=== PATIENT | female | born 1980 | race Caucasian/White ===

== ENCOUNTER → 2017-01-27 | Outpatient (CLI) | payer OTHER ==
--- NOTE | 2017-01-27 07:58 | MR ---
EXAMINATION TYPE: MR brain wo con DATE OF EXAM: 01/27/2017 7:42 AM COMPARISON: NONE HISTORY: [place], loss of vision lt. eye Multiplanar and multispin-echo imaging of the brain was performed . Patient motion limits portions o f the study. The ventricles, basal cisterns and sulci overlying the cerebral convexities are within normal limits. There is no evidence for midline shift or mass effect. Acute intracranial hemorrhage or extra-axial collection is not evident. Noted are approximately 4 globular T2 lesions left cerebral hemisphere with lung lesions seen adjacen t to the left temporal horn and the remaining lesions are within the centrum semioval bilaterally wit h the largest lesion measuring 8.2 mm. An additional lesion is seen adjacent to the left occipital ho rn. Within the right cerebral hemisphere there is a dominant globular focus of increased signal withi n the right centrum semiovale bilaterally measuring 1 cm for 5 additional lesions are noted with one being within the temporal lobe and the remaining being within the deep white matter and periventricul ar white matter. 2 lesions are noted of the corpus callosum at its body. No acute edema is identified. Moderately severe pansinusitis. Mastoid air cells are well-aerated. IMPRESSION: 1. Globular T2 lesions as discussed above involving both cerebral hemispheres as well as the corpus c allosum. The findings are suspicious for demyelinating disease such as multiple sclerosis. Clinical c orrelation is advised. 2. Moderately severe pansinusitis.
== END | disposition home or self-care (01) ==
LOC: RADMRIMAIN 07:07
PROVIDERS: ATTEND Internal Medicine
DX: G93.89 Other specified disorders of brain (principal); H54.62 Unqualified visual loss, left eye, normal vision right eye
CPT/HCPCS: 70551

== ENCOUNTER → 2017-04-25 | Outpatient (CLI) | payer OTHER ==
--- NOTE | 2017-04-25 09:47 | XR ---
EXAMINATION TYPE: XR shoulder limited RT DATE OF EXAM ORDERED: 04/25/2017 HISTORY: M25.511 shoulder pain. COMPARISON: None. FINDINGS: No fracture, dislocation or other acute osseous lesion is seen. IMPRESSION: NORMAL RIGHT SHOULDER.
== END | disposition home or self-care (01) ==
LOC: RADXRMAIN 09:26
PROVIDERS: ATTEND Internal Medicine
DX: M25.511 Pain in right shoulder (principal)

== ENCOUNTER → 2017-05-09 | Outpatient (CLI) | payer OTHER ==
--- NOTE | 2017-05-09 08:11 | MR ---
EXAMINATION TYPE: MR shoulder RT wo con DATE OF EXAM: 05/09/2017 COMPARISON: Right shoulder x-ray April 25, 2017 HISTORY: RT shoulder pain per order. Pain with difficulty raising overhead for 6 months, torn rotator cuff per patient. TECHNIQUE: Multiplanar, multisequence imaging of the right shoulder is performed without contrast. FINDINGS: Rotator Cuff: There is some increased signal in distal supraspinatus and infraspinatus tendons. No di screte tear is identified. Rotator cuff muscle bulk is preserved. There is edematous change involving teres minor muscles seen best on paracoronal image 27 but confirmed on sagittal images. This extends to humeral articular attachment. Subscapularis tendon is intact and felt within normal limits. Acromioclavicular Joint: Acromioclavicular joint is maintained. Distal acromion morphology is unremar kable. Underlying fat plane is preserved. Glenohumeral Joint: There is small glenohumeral joint effusion. No significant spurring is seen. Labrum: The labrum appears grossly intact given limitation of non-arthrogram study. Biceps Tendon: The long head of biceps is in normal location within bicipital groove. Bone marrow signal: Heterogeneity of bone marrow signal intensity consistent with red marrow reconver mely is present. Other: No additional significant abnormality is appreciated. IMPRESSION: 1. Mild to moderate tendinosis distal supraspinatus and infraspinatus tendons. 2. Edematous change involving teres minor muscle. No suspicious atrophy to suggest quadrilateral spac e syndrome. Consider inflammation. Etiology uncertain otherwise.
== END | disposition home or self-care (01) ==
LOC: RADMRIMAIN 06:42
PROVIDERS: ATTEND Internal Medicine
DX: M67.813 Other specified disorders of tendon, right shoulder (principal); M62.89 Other specified disorders of muscle

== ENCOUNTER 2018-01-04 18:15 | Emergency (ER) | payer OTHER ==
[2018-01-04 19:11] VITALS: BP 138/79; PULSE 79; RESP 18; TEMP 97.5
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
--- NOTE | 2018-01-04 19:35 | XR ---
EXAMINATION TYPE: XR ankle complete RT DATE OF EXAM: 01/04/2018 COMPARISON: NONE HISTORY: Pain TECHNIQUE: 3 views FINDINGS: There is mild soft tissue swelling over the lateral malleolus. I see no fracture nor disloc ation. Joint spaces are fairly normal. IMPRESSION: Mild soft tissue swelling. No fracture.
--- NOTE | 2018-01-04 19:37 | XR ---
EXAMINATION TYPE: XR foot complete RT DATE OF EXAM: 01/04/2018 COMPARISON: NONE HISTORY: Pain TECHNIQUE: 3 views FINDINGS: I see no fracture nor dislocation. Metatarsals appear intact. Joint spaces are fairly melody l. There are no erosions. IMPRESSION: Negative right foot exam. No fracture.
[2018-01-04] MEDS ORDERED: IBUPROFEN 600 MG STARTER PACK 4 TAB BTL PO STA (20:15)
== END 2018-01-04 20:26 | disposition home or self-care (01) ==
LOC: EC 18:15
DX: S90.31XA Contusion of right foot, initial encounter (principal); Z87.891 Personal history of nicotine dependence; Z88.0 Allergy status to penicillin; Z88.8 Allergy status to other drugs, medicaments and biological substances; W01.0XXA Fall on same level from slipping, tripping and stumbling without subsequent striking against object, initial encounter; Y92.009 Unspecified place in unspecified non-institutional (private) residence as the place of occurrence of the external cause
CPT/HCPCS: 99284

== ENCOUNTER → 2018-04-09 | Outpatient (CLI) | payer OTHER ==
[2018-04-09 19:04] LABS: Rheumatoid Factor <4 IU/mL (0-15)
[2018-04-09 19:31] LABS: DNA Double-Stranded NEGATIVE (NEGATIVE); RNP 0.2 AI
== END | disposition home or self-care (01) ==
LOC: LABWHC1 13:02
PROVIDERS: ATTEND Psychiatry & Neurology Neurology
DX: G35 Multiple sclerosis (principal)
CPT/HCPCS: 36415; 85652; 86038; 86225; 86235; 86431

== ENCOUNTER 2018-04-12 09:57 | Emergency (ER) | payer OTHER ==
[2018-04-12 10:02] VITALS: BP 136/88; RESP 18; TEMP 97.7
[2018-04-12 10:03] VITALS: PULSE 100
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
[2018-04-12] MEDS ORDERED: KETOROLAC 60 MG/2 ML VIAL IM STA (10:41)
== END 2018-04-12 11:36 | disposition home or self-care (01) ==
LOC: EC 09:57
DX: Z76.5 Malingerer [conscious simulation] (principal); Z87.412 Personal history of vulvar dysplasia; R10.2 Pelvic and perineal pain; M19.90 Unspecified osteoarthritis, unspecified site; Z87.891 Personal history of nicotine dependence; Z79.1 Long term (current) use of non-steroidal anti-inflammatories (NSAID); Z88.0 Allergy status to penicillin; Z88.1 Allergy status to other antibiotic agents; Z88.8 Allergy status to other drugs, medicaments and biological substances; Z98.890 Other specified postprocedural states
CPT/HCPCS: 99283; 96372; J1885

== ENCOUNTER → 2018-06-13 | Outpatient (CLI) | payer OTHER ==
[2018-06-13 19:51] LABS: Immunoglobulin E 6.94 IU/mL (0.00-114.00)
== END | disposition home or self-care (01) ==
LOC: LABWHC1 11:48
PROVIDERS: ATTEND Psychiatry & Neurology Neurology
DX: G35 Multiple sclerosis (principal); A15.9 Respiratory tuberculosis unspecified
CPT/HCPCS: 36415; 82784; 82785; 86480

== ENCOUNTER → 2018-07-11 | Outpatient (CLI) | payer OTHER ==
[2018-07-11 13:25] LABS: Basophils % (A) 0 %; Eosinophils # (A) 0.1 k/uL (0-0.7); Eosinophils % (A) 2 %; HCT 42.8 % (34.0-46.0); HGB 14.8 gm/dL (11.4-16.0); Lymphocytes # (A) 1.7 k/uL (1.0-4.8); Lymphocytes % (A) 18 %; MCH 31.6 pg (25.0-35.0); MCHC 34.5 g/dL (31.0-37.0); MCV 91.5 fL (80.0-100.0); Mean Platelet Volume 8.4; Monocytes # (A) 0.6 k/uL (0-1.0); Monocytes % (A) 7 %; Neutrophils # (A) 6.8 k/uL (1.3-7.7); Neutrophils % (A) 72 %; Platelet Count 212 k/uL (150-450); RBC 4.68 m/uL (3.80-5.40); RDW 12.4 % (11.5-15.5); WBC 9.4 k/uL (3.8-10.6)
[2018-07-11 14:00] LABS: ALT 26 U/L (9-52); AST 17 U/L (14-36); Albumin 4.4 g/dL (3.5-5.0); Alkaline Phosphatase 65 U/L (38-126); Anion Gap 8 mmol/L; Blood Urea Nitrogen 8 mg/dL (7-17); Calcium 9.9 mg/dL (8.4-10.2); Carbon Dioxide 28 mmol/L (22-30); Chloride 106 mmol/L (98-107); Glucose 91 mg/dL (74-99); Potassium 5.5 mmol/L (3.5-5.1); Sodium 142 mmol/L (137-145); Total Bilirubin 0.4 mg/dL (0.2-1.3)
== END | disposition home or self-care (01) ==
LOC: LABWHC1 12:44
PROVIDERS: ATTEND Obstetrics & Gynecology
DX: Z01.812 Encounter for preprocedural laboratory examination (principal)
CPT/HCPCS: 36415; 80053; 85025

== ENCOUNTER → 2019-01-10 | Outpatient (CLI) | payer OTHER ==
[2019-01-10 09:22] LABS: Basophils # (A) 0.1 k/uL (0-0.2); Basophils % (A) 0 %; Eosinophils # (A) 0.1 k/uL (0-0.7); Eosinophils % (A) 1 %; HCT 38.8 % (34.0-46.0); HGB 12.9 gm/dL (11.4-16.0); Lymphocytes # (A) 1.2 k/uL (1.0-4.8); Lymphocytes % (A) 10 %; MCH 31.1 pg (25.0-35.0); MCHC 33.1 g/dL (31.0-37.0); MCV 93.9 fL (80.0-100.0); Mean Platelet Volume 7.5; Monocytes # (A) 0.7 k/uL (0-1.0); Monocytes % (A) 5 %; Neutrophils # (A) 10.1 k/uL (1.3-7.7); Neutrophils % (A) 82 %; Platelet Count 178 k/uL (150-450); RBC 4.13 m/uL (3.80-5.40); WBC 12.2 k/uL (3.8-10.6)
[2019-01-10 18:12] LABS: Albumin 4.2 g/dL (3.80-4.90); Albumin/Globulin Ratio 2.33 (1.60-3.17); Anion Gap 11.8 mmol/L (4.00-12.00); Calcium 9.2 mg/dL (8.7-10.3); Carbon Dioxide 23.2 mmol/L (21.6-31.8); Globulin 1.8 g/dL (1.6-3.3); Potassium 4.2 mmol/L (3.5-5.5); Total Bilirubin 0.3 mg/dL (0.2-1.2)
[2019-01-10 18:34] LABS: Immunoglobulin E 10.3 IU/mL (0.00-114.00)
[2019-01-11 12:17] LABS: Natural Killer Cell (CD16/56) 200 cell/ul (60-500); Natural Killer Cell (CD16/56)% 16 % (3-24); T Helper Cell (CD4) 718 cell/ul (443-1471); T Helper Cell (CD4) % 57 % (35-66); T Suppressor Cell (CD8) 317 cell/ul (190-832); T Suppressor Cell (CD8) % 25 % (9-37); T4/T8 Ratio (CD4:CD8) 2.3 (1.0-3.7); Total B Cell (CD19) <5 cell/ul (100-524); Total T Cell (CD3) 1018 cell/ul (704-2138); Total T Cell (CD3)% 82 % (55-86)
== END | disposition home or self-care (01) ==
LOC: LABWHC1 08:41
PROVIDERS: ATTEND Psychiatry & Neurology Neurology
DX: G35 Multiple sclerosis (principal)
CPT/HCPCS: 36415; 80053; 82784; 82785; 85025; 86355; 86357; 86359; 86360

== ENCOUNTER → 2019-12-06 | Outpatient (CLI) | payer OTHER ==
[2019-12-06 11:24] LABS: Basophils % (A) 1 %; Eosinophils # (A) 0.1 k/uL (0-0.7); Eosinophils % (A) 1 %; HCT 40.3 % (34.0-46.0); Lymphocytes # (A) 1.6 k/uL (1.0-4.8); Lymphocytes % (A) 17 %; MCH 30.4 pg (25.0-35.0); MCHC 32.3 g/dL (31.0-37.0); MCV 94.2 fL (80.0-100.0); Mean Platelet Volume 10.1; Monocytes # (A) 0.5 k/uL (0-1.0); Monocytes % (A) 6 %; Neutrophils # (A) 6.7 k/uL (1.3-7.7); Neutrophils % (A) 74 %; Platelet Count 149 k/uL (150-450); RBC 4.28 m/uL (3.80-5.40); RDW 12.2 % (11.5-15.5); WBC 9.1 k/uL (3.8-10.6)
[2019-12-06 17:55] LABS: African American GFR (CKD) 108.4 (60.0-200.0); Albumin 4.5 g/dL (3.80-4.90); Albumin/Globulin Ratio 2.81 (1.60-3.17); Anion Gap 7.4 mmol/L (4.00-12.00); Calcium 9.1 mg/dL (8.7-10.3); Carbon Dioxide 24.6 mmol/L (21.6-31.8); Globulin 1.6 g/dL (1.6-3.3); Non-African American GFR(CKD) 93.5 (60.0-200.0); Potassium 4.8 mmol/L (3.5-5.5); Total Bilirubin 0.4 mg/dL (0.3-1.2); Total Protein 6.1 g/dL (6.2-8.2)
[2019-12-06 18:24] LABS: Immunoglobulin E 7.29 IU/mL (0.00-114.00)
[2019-12-09 11:28] LABS: Natural Killer Cell (CD16/56) 207 cell/ul (60-500); Natural Killer Cell (CD16/56)% 13 % (3-24); T Helper Cell (CD4) 1039 cell/ul (443-1471); T Helper Cell (CD4) % 65 % (35-66); T Suppressor Cell (CD8) 341 cell/ul (190-832); T Suppressor Cell (CD8) % 21 % (9-37); Total B Cell (CD19) <5 cell/ul (100-524); Total T Cell (CD3) 1392 cell/ul (704-2138); Total T Cell (CD3)% 86 % (55-86)
== END | disposition home or self-care (01) ==
LOC: LABWHC1 10:40
PROVIDERS: ATTEND Psychiatry & Neurology Neurology
DX: G35 Multiple sclerosis (principal); H46.9 Unspecified optic neuritis; R20.2 Paresthesia of skin
CPT/HCPCS: 36415; 80053; 82306; 82607; 82784; 82785; 84443; 85025; 86355; 86357; 86359; 86360

== ENCOUNTER → 2020-06-03 | Outpatient (CLI) | payer OTHER ==
[2020-06-03 14:27] LABS: Basophils # (A) 0.1 k/uL (0-0.2); Basophils % (A) 1 %; Eosinophils # (A) 0.2 k/uL (0-0.7); Eosinophils % (A) 2 %; HCT 43.8 % (34.0-46.0); Lymphocytes # (A) 1.6 k/uL (1.0-4.8); Lymphocytes % (A) 16 %; MCH 30.8 pg (25.0-35.0); MCV 96.2 fL (80.0-100.0); Mean Platelet Volume 10.1; Monocytes # (A) 0.7 k/uL (0-1.0); Monocytes % (A) 7 %; Neutrophils # (A) 7.3 k/uL (1.3-7.7); Neutrophils % (A) 74 %; Platelet Count 200 k/uL (150-450); RBC 4.55 m/uL (3.80-5.40); RDW 12.6 % (11.5-15.5); WBC 9.9 k/uL (3.8-10.6)
[2020-06-04 00:52] LABS: African American GFR (CKD) 108.4 (60.0-200.0); Albumin 4.6 g/dL (3.80-4.90); Albumin/Globulin Ratio 2.3 (1.60-3.17); Anion Gap 8.2 mmol/L (4.00-12.00); BUN/Creat Ratio 18.75 Ratio (12.00-20.00); Calcium 9.8 mg/dL (8.7-10.3); Carbon Dioxide 27.8 mmol/L (21.6-31.8); Non-African American GFR(CKD) 93.5 (60.0-200.0); Potassium 4.8 mmol/L (3.5-5.5); Total Bilirubin 0.3 mg/dL (0.3-1.2); Total Protein 6.6 g/dL (6.2-8.2)
[2020-06-04 01:06] LABS: Immunoglobulin E 5.72 IU/mL (0.00-114.00)
[2020-06-05 07:52] LABS: Natural Killer Cell (CD16/56) 205 cell/ul (60-500); Natural Killer Cell (CD16/56)% 12 % (3-24); T Helper Cell (CD4) 1142 cell/ul (443-1471); T Helper Cell (CD4) % 66 % (35-66); T Suppressor Cell (CD8) 351 cell/ul (190-832); T Suppressor Cell (CD8) % 20 % (9-37); T4/T8 Ratio (CD4:CD8) 3.3 (1.0-3.7); Total B Cell (CD19) <5 cell/ul (100-524); Total T Cell (CD3) 1481 cell/ul (704-2138); Total T Cell (CD3)% 86 % (55-86)
== END | disposition home or self-care (01) ==
LOC: LABWHC1 13:27
PROVIDERS: ATTEND Psychiatry & Neurology Neurology
DX: E55.9 Vitamin D deficiency, unspecified (principal); G35 Multiple sclerosis; H46.9 Unspecified optic neuritis; R20.2 Paresthesia of skin
CPT/HCPCS: 36415; 80053; 82306; 82607; 82784; 82785; 84443; 85025; 86038; 86355; 86357; 86359; 86360; 86431

== ENCOUNTER → 2020-09-03 | Outpatient (CLI) | payer OTHER ==
[2020-09-03 12:40] LABS: Basophils # (A) 0.1 k/uL (0-0.2); Basophils % (A) 1 %; Eosinophils # (A) 0.1 k/uL (0-0.7); Eosinophils % (A) 1 %; HGB 13.2 gm/dL (11.4-16.0); Lymphocytes % (A) 23 %; MCH 30.7 pg (25.0-35.0); MCHC 31.4 g/dL (31.0-37.0); MCV 97.9 fL (80.0-100.0); Mean Platelet Volume 9.3; Monocytes # (A) 0.6 k/uL (0-1.0); Monocytes % (A) 7 %; Neutrophils # (A) 5.9 k/uL (1.3-7.7); Neutrophils % (A) 67 %; Platelet Count 206 k/uL (150-450); RBC 4.29 m/uL (3.80-5.40); RDW 12.7 % (11.5-15.5); WBC 8.7 k/uL (3.8-10.6)
[2020-09-03 21:38] LABS: African American GFR (CKD) 108.4 (60.0-200.0); Albumin 4.4 g/dL (3.80-4.90); Albumin/Globulin Ratio 2.44 (1.60-3.17); Anion Gap 5.6 mmol/L (4.00-12.00); BUN/Creat Ratio 16.25 Ratio (12.00-20.00); Calcium 9.6 mg/dL (8.7-10.3); Carbon Dioxide 26.4 mmol/L (21.6-31.8); Globulin 1.8 g/dL (1.6-3.3); Non-African American GFR(CKD) 93.5 (60.0-200.0); Potassium 4.3 mmol/L (3.5-5.5); Total Bilirubin 0.4 mg/dL (0.3-1.2); Total Protein 6.2 g/dL (6.2-8.2)
[2020-09-03 21:57] LABS: Immunoglobulin E 4.21 IU/mL (0.00-114.00)
[2020-09-04 11:29] LABS: Immunoglobulin M 79.3 mg/dL (40.0-280.0)
[2020-09-04 13:37] LABS: Natural Killer Cell (CD16/56) 150 cell/ul (60-500); Natural Killer Cell (CD16/56)% 7 % (3-24); T Helper Cell (CD4) 1580 cell/ul (443-1471); T Helper Cell (CD4) % 70 % (35-66); T Suppressor Cell (CD8) 486 cell/ul (190-832); T Suppressor Cell (CD8) % 22 % (9-37); T4/T8 Ratio (CD4:CD8) 3.3 (1.0-3.7); Total B Cell (CD19) <5 cell/ul (100-524); Total T Cell (CD3) 2094 cell/ul (704-2138); Total T Cell (CD3)% 93 % (55-86)
== END | disposition home or self-care (01) ==
LOC: LABWHC1 11:34
PROVIDERS: ATTEND Psychiatry & Neurology Neurology
DX: G35 Multiple sclerosis (principal)
CPT/HCPCS: 36415; 80053; 82784; 82785; 85025; 86355; 86357; 86359; 86360

== ENCOUNTER 2023-02-10 15:50 | Emergency (ER) | payer OTHER ==
[2023-02-10 15:57] VITALS: BP 125/76; PULSE 70; RESP 20; TEMP 97.9
[2023-02-10] MEDS ORDERED: SODIUM CHLORIDE 0.9% 1,000 ML IV STA (16:04)
[2023-02-10] MEDS ORDERED: METOCLOPRAMIDE 5 MG/ML 2 ML VIAL IVP STA (16:04)
[2023-02-10] MEDS ORDERED: DEXAMETHASONE SOD PHOSPHATE 10 MG/ML 1 ML VIAL IVP STA (16:04)
[2023-02-10] MEDS ORDERED: KETOROLAC 15 MG/ML 1 ML VIAL IVP STA (16:04)
[2023-02-10] MEDS ORDERED: diphenhydrAMINE 50 MG/ML 1 ML VIAL IVP STA (16:04)
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
--- NOTE | 2023-02-10 17:55 | CT ---
EXAMINATION TYPE: CT brain wo con DATE OF EXAM: 02/10/2023 COMPARISON: Headache HISTORY: headache CT DLP: 1114.4 mGycm Automated exposure control for dose reduction was used. Images of the brain obtained with no contrast. Ventricles and sulci appear normal. There is no mass effect or midline shift. No sign of intracranial hemorrhage. Calvarium is intact. Skull base is intact. There is normal aeration of the mastoid sinus es. IMPRESSION: Normal unenhanced head CT scan
== END 2023-02-10 18:48 | disposition home or self-care (01) ==
LOC: EC 15:50
DX: R51.9 Headache, unspecified (principal); I10 Essential (primary) hypertension; M19.90 Unspecified osteoarthritis, unspecified site; Z79.899 Other long term (current) drug therapy; Z88.0 Allergy status to penicillin; Z88.8 Allergy status to other drugs, medicaments and biological substances
CPT/HCPCS: 70450; 99284; 96374; 96375 ×3; 96361 ×2; J1200; J1100; J2765; J1885

== ENCOUNTER → 2023-08-29 | Outpatient (CLI) | payer OTHER ==
[2023-08-29 15:09] LABS: Basophils # (A) 0.07 X 10*3/uL (0.00-0.10); Basophils % (A) 0.6 %; Eosinophils % (A) 0.9 %; HGB 14.4 d/dL (12.0-15.0); Lymphocytes # (A) 1.95 X 10*3/uL (0.90-5.00); Lymphocytes % (A) 16.7 %; MCH 31.6 pg (27.0-32.0); MCHC 34.3 d/dL (32.0-37.0); MCV 92.3 FL (80.0-97.0); Mean Platelet Volume 12.1 FL (9.5-12.2); Monocytes # (A) 0.86 X 10*3/uL (0.20-1.00); Monocytes % (A) 7.4 %; NRBC Per 100 WBC 0 X 10*3/uL (0.00-0.01); Neutrophils # (A) 8.66 X 10*3/uL (1.80-7.70); Platelet Count 200 X 10*3/uL (140-440); RBC 4.55 X 10*6/uL (4.10-5.20); RDW 12.4 % (11.5-14.5); WBC 11.69 X 10*3/uL (4.50-10.00)
[2023-08-29 15:41] LABS: Immunoglobulin A 92.8 mg/dL (60.0-350.0); Immunoglobulin M 80.8 mg/dL (40.0-280.0)
[2023-08-29 16:03] LABS: ALT 12 U/L (8-44); AST 13 U/L (13-35); Albumin 4.8 d/dL (3.8-4.9); Albumin/Globulin Ratio 2.29 Ratio (1.60-3.17); Alkaline Phosphatase 59 U/L (41-126); Blood Urea Nitrogen 14.4 mg/dL (9.0-27.0); Carbon Dioxide 26.6 mmol/L (21.6-31.8); Chloride 102 mmol/L (96-109); Globulin 2.1 d/dL (1.6-3.3); Glucose 92 mg/dL (70-110); Potassium 4.9 mmol/L (3.5-5.5); Sodium 139 mmol/L (135-145); Total Bilirubin 0.4 mg/dL (0.3-1.2); Total Protein 6.9 d/dL (6.2-8.2)
[2023-08-29 18:38] LABS: Immunoglobulin E <5.00 IU/mL (0.00-114.00)
== END | disposition home or self-care (01) ==
LOC: LABWHC1 10:53
PROVIDERS: ATTEND Psychiatry & Neurology Neurology
DX: M54.17 Radiculopathy, lumbosacral region (principal); G35 Multiple sclerosis; H46.9 Unspecified optic neuritis; R20.2 Paresthesia of skin
CPT/HCPCS: 36415; 80053; 82306; 82784; 82785; 85025